=== PATIENT | female | born 1950 | race Caucasian/White ===

== ENCOUNTER 2017-03-12 16:52 | Emergency (ER) | payer MEDICAID, OTHER ==
[~2017-03-12] VITALS: Wt 76.0 kg
[2017-03-12] MEDS ORDERED: ACETAMINOPHEN 500 MG TAB PO STA (18:40)
--- NOTE | 2017-03-12 19:26 | RADRPT ---
PROCEDURE: CHEST 1VW CLINICAL INDICATION: Chest pain TECHNIQUE: Single frontal view of the chest was obtained COMPARISON: None. FINDINGS: The cardiac size is normal. Aortic vascular calcifications are demonstrated. There is no pulmonary vascular congestion. The lungs are clear. No consolidation, effusion, or pneumothorax. Mild degenerative changes of the visualized osseous structures are visualized. IMPRESSION: 1. No acute cardiopulmonary process. 2. Atherosclerosis. RPTAT:PP .Vic Olivas MD, MD Date Time Electronically viewed and signed by .Vic Olivas MD, on 03/12/2017 19:26 .V/
[2017-03-12] MEDS ORDERED: ACET500C5 PO (19:51)
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
== END 2017-03-12 20:09 | disposition home or self-care (01) ==
LOC: FTE 16:52
DX: F41.9 Anxiety disorder, unspecified (principal); R55 Syncope and collapse; E11.9 Type 2 diabetes mellitus without complications
CPT/HCPCS: 71010; 93005; Z7610